=== PATIENT | male | born 1960 | race Caucasian/White ===

== ENCOUNTER → 2025-05-26 16:17 | Outpatient (REF) | payer BC, SELFPAY ==
[2025-05-26 17:30] LABS: HDL Cholesterol 41 mg/dl; LDL Cholesterol, Calculated 74 mg/dl; Very Low Density Lipoprotein 21 mg/dl (0-30)
[2025-05-27 10:34] LABS: Glycohemoglobin (HgbA1c) 5.7 % (4.0-5.6)
== END ==
LOC: REG 16:17
PROVIDERS: ATTENDING PHYSICIAN Internal Medicine Geriatric Medicine
DX: E66.01 Morbid (severe) obesity due to excess calories (principal); E78.5 Hyperlipidemia, unspecified
CPT/HCPCS: 36415; 80061; 83036